=== PATIENT | male | born 1975 | race Caucasian/White ===

== ENCOUNTER → 2016-05-11 | Outpatient (CLI) | payer BC ==
[~2016-05-11] MED LIST: REGADENOSON 0.4 MG/5 ML SYRINGE IV ONE
--- NOTE | 2016-05-11 12:05 | EST ---
DATE OF SERVICE: 05/11/2016 AGE: 40Y SEX: M HT: 68" WT: 237 lbs. Protocol Nasmi: X Other: Stress Cardiolite Stage: 3 Dur. of Exercise: 8:00 *Heart Rate Blood Pressure *Rest: 89 Rest: 152/91 * *Max. Achieved: 152 Maximum BP: 200/92 85% PMHR: 151 100% PMHR: 178 *METS: 9.5 INDICATIONS: Abnormal EKG. MEDICATIONS: Baclofen, metformin, hydrocodone, atorvastatin, omeprazole. Baseline EKG revealed a normal sinus rhythm with borderline voltage criteria for LVH. Patient walked on standard Nasim protocol for 8 minutes, achieved a maximum heart rate of 152 beats per minute, which is 85% of predicted maximal. He developed fatigue and shortness of breath, but did not have any angina or arrhythmia. EKG did not reveal any ST segment changes to indicate ischemia. By EKG criteria, this is a negative stress test with fair exercise capacity. Patient had a slightly hypertensive response to exercise. The nuclear scan results, which are more pertinent, will be reported by the radiologist.
--- NOTE | 2016-05-11 15:49 | NM ---
EXAMINATION TYPE: NM stress cardiolite complete DATE OF EXAM: 05/11/2016 11:11 AM COMPARISON: NONE HISTORY: 40 year-old male abnormal EKG TECHNIQUE: After the intravenous administration of 9.9 mCi Tc 99m Sestamibi - Rest images obtained 4 5 minutes post injection. The patient exercised using a PALMA protocol and 1 minute prior to peak e xercise was injected with 26.4 mCi Tc 99m Sestamibi - Stress images obtained 10 minutes post injectio n. FINDINGS: Targeted heart rate was achieved during performance of the study. Review of stress and rest SPECT pamela ges demonstrates no distinct perfusion abnormality. Gated analysis shows normal wall motion with an estimated left ventricular ejection fraction of 63 %. TID is calculated at 0.77, within normal limit s. Polar maps are normal. IMPRESSION: No scintigraphic evidence for reversible ischemia
== END | disposition home or self-care (01) ==
LOC: RADNMMAIN 08:19
PROVIDERS: ATTEND Family Medicine
DX: R94.31 Abnormal electrocardiogram [ECG] [EKG] (principal)
CPT/HCPCS: 93017; 78452; A9500; J2785

== ENCOUNTER → 2018-07-06 | Outpatient (CLI) | payer BC ==
--- NOTE | 2018-07-06 12:07 | XR ---
EXAMINATION TYPE: XR cervical spine comp DATE OF EXAM: 07/06/2018 TECHNIQUE: Frontal, lateral, oblique, swimmers, and open mouth view of the cervical spine are obtaine d. HISTORY: M54.2 Cervical Pain COMPARISON: None FINDINGS: The cervical spine is visualized in its entirety from C1 thru the top of T1 level, it is s atisfactory in alignment without evidence of acute fracture or dislocation. The pre-vertebral soft t issue appears within normal limits. The C1-C2 articulation is within normal limits on the open mouth view. Mild uncovertebral hypertrophy and facet arthropathy are seen within the lower cervical spine . The oblique images demonstrate mild neural foraminal narrowing at C5-C6 on the right. IMPRESSION: No acute fracture or malalignment is seen in the cervical spine. Mild neural foraminal n arrowing at C5-C6 on the right secondary to mild degenerative disc disease of the cervical spine.
== END | disposition home or self-care (01) ==
LOC: RADXRMAIN 10:21
PROVIDERS: ATTEND Family Medicine
DX: M48.02 Spinal stenosis, cervical region (principal); M50.322 Other cervical disc degeneration at C5-C6 level
CPT/HCPCS: 72050

== ENCOUNTER → 2019-12-03 | Day surgery (SDC) | payer BC ==
[2019-11-28 15:02] VITALS: BMI 33.4
[~2019-12-03] MED LIST changes: +LACTATED RINGERS 1,000 ML IV SCH; +LIDOCAINE 1% (10MG/ML) FOR IV START INTRADERMA PRN; +PROPOFOL 10 MG/ML 20 ML VIAL IV ONE; -REGADENOSON 0.4 MG/5 ML SYRINGE IV ONE
[2019-12-03 08:02] VITALS: TEMP 98.3
[2019-12-03 08:17] LABS: Glucose,Whole Blood 124 mg/dL (75-99)
--- NOTE | 2019-12-03 08:29 | P.GSHP ---
History of Present Illness H&P Date: 12/03/19 Chief Complaint: GERD Patient here today for upper endoscopy. Describes chronic reflux. Symptoms improved with omeprazole. Also complains of a bad discomfort in the back of his throat after smoking marijuana each evening. No dysphasia. No rectal bleeding or melena. Past Medical History Past Medical History: Diabetes Mellitus, GERD/Reflux, Hyperlipidemia, Hypertension Additional Past Medical History / Comment(s): ruptured disc back History of Any Multi-Drug Resistant Organisms: None Reported Additional Past Surgical History / Comment(s): carpal tunnel bijan Additional Past Anesthesia/Blood Transfusion Reaction / Comment(s): has never had anesthesia Smoking Status: Current every day smoker Medications and Allergies Home Medications Medication Instructions Recorded Confirmed Type Atorvastatin [Lipitor] 10 mg PO HS 11/28/19 12/03/19 History HYDROcodone/APAP 10-325MG [[place] 1 tab PO TID 11/28/19 12/03/19 History 10-325] Ibuprofen 200 mg PO Q8H PRN 11/28/19 12/03/19 History Omeprazole [PriLOSEC] 20 mg PO DAILY 11/28/19 12/03/19 History lisinopriL 20 mg PO DAILY 11/28/19 12/03/19 History metFORMIN HCL [Glucophage] 1,000 mg PO BID 11/28/19 12/03/19 History Allergies Allergy/AdvReac Type Severity Reaction Status Date / Time No Known Allergies Allergy Unverified 12/03/19 08:05 Surgical - Exam Vital Signs Temp Pulse Resp BP Pulse Ox 98.3 F 78 18 138/95 96 12/03/19 08:00 12/03/19 08:00 12/03/19 08:00 12/03/19 08:00 12/03/19 08:00 Physical exam: General: Well-developed, well-nourished HEENT: Normocephalic, sclerae nonicteric Abdomen: Nontender, nondistended Extremities: No edema Neuro: Alert and oriented Results - Labs Abnormal Lab Results - Last 24 Hours (Table) 12/03/19 Range/Units 08:11 POC Glucose (mg/dL) 124 H (75-99) mg/dL Assessment and Plan (1) GERD (gastroesophageal reflux disease) Narrative/Plan: Will proceed with upper and lower endoscopy Current Visit: Yes Status: Acute Code(s): K21.9 - GASTRO-ESOPHAGEAL REFLUX DISEASE WITHOUT ESOPHAGITIS SNOMED Code(s): 434934880
--- NOTE | 2019-12-03 08:39 | P.PCN ---
Date of Procedure: 12/03/19 Procedure(s) Performed: Preoperative Dx: GERD Postoperative Dx: Mild gastritis Procedure: EGD with Bx Anesthesia: Sedation Endoscopist: Dr. Spence Specimens: Antrum Endoscopic Procedure: The patient was on the endoscopy table in the left decubitus position. The Olympus gastroscope was inserted into the oropharynx and passed under direct visualization to the region of the third portion of the duodenum. From that point the scope was slowly withdrawn inspecting all surfaces carefully. There were no neoplastic inflammatory or polypoid lesions throughout the duodenum. The pylorus was widely patent. The stomach was carefully inspected. There was evidence of mild inflammatory changes consistent with mild gastritis. A biopsy of the antrum took place to rule out H. pylori. Retroflexion revealed a normal hiatus. The esophagus was then carefully examined. There were no neoplastic inflammatory or polypoid lesions throughout the visualized esophagus. The patient was then taken to the recovery room in stable condition per anesthesia guidelines. Recommendations: Await biopsy results. Continue antiacid therapy
[2019-12-03 08:55] VITALS: BP 133/92; PULSE 78; RESP 17
== END ==
LOC: ORWHC2ENDO 07:39
PROVIDERS: ATTEND Surgery
DX: K29.50 Unspecified chronic gastritis without bleeding (principal); K21.9 Gastro-esophageal reflux disease without esophagitis; E11.9 Type 2 diabetes mellitus without complications; E78.5 Hyperlipidemia, unspecified; I10 Essential (primary) hypertension; Z98.890 Other specified postprocedural states; F17.210 Nicotine dependence, cigarettes, uncomplicated; J44.9 Chronic obstructive pulmonary disease, unspecified; M50.20 Other cervical disc displacement, unspecified cervical region; M51.26 Other intervertebral disc displacement, lumbar region; E66.9 Obesity, unspecified; Z68.33 Body mass index [BMI] 33.0-33.9, adult; M19.90 Unspecified osteoarthritis, unspecified site; M72.2 Plantar fascial fibromatosis; E78.00 Pure hypercholesterolemia, unspecified; Z79.84 Long term (current) use of oral hypoglycemic drugs; Z79.891 Long term (current) use of opiate analgesic; Z79.899 Other long term (current) drug therapy
CPT/HCPCS: 88305; 43239; J2704

== ENCOUNTER → 2021-10-26 | Outpatient (CLI) | payer BC ==
--- NOTE | 2021-10-26 08:56 | CT ---
EXAMINATION TYPE: CT soft tissue neck wo con DATE OF EXAM: 10/26/2021 COMPARISON: none HISTORY: Sore throat CT DLP: 611.[address] of the neck was performed from the skull base through the lung apices. Lack of contrast limits evaluation. AIRWAY: The supraglottic, glottic, and subglottic portions of the airway appear patent and free of mass. SALIVARY GLANDS: The submandibular and parotid glands are free of mass or inflammatory process. THYROID GLAND: 1 cm right thyroid nodule with mural calcification. Consider ultrasound correlation. LYMPH NODES: No adenopathy seen greater than 1cm. LUNG APICES: No nodule or mass is seen. Incidental azygos lobe and fissure right upper lobe. OTHER: Vascular structures are patent. No significant degenerative change of the cervical spine. N o abscess seen. Mild mucosal thickening maxillary sinuses. IMPRESSION: 1. Right thyroid nodule as discussed. Consider ultrasound correlation. 2. Chronic sinusitis.
== END | disposition home or self-care (01) ==
LOC: RADCTMAIN 07:38
PROVIDERS: ATTEND Family Medicine
DX: R07.0 Pain in throat (principal)
CPT/HCPCS: 70490

== ENCOUNTER → 2021-11-25 | Outpatient (CLI) | payer BC ==
--- NOTE | 2021-11-25 16:08 | US ---
EXAMINATION TYPE: US thyroid st tissue head/neck DATE OF EXAM: 11/25/2021 COMPARISON: Correlation CT 10/26/2021 CLINICAL HISTORY: 46-year-old male E04.1 thyroid nodule. GLAND SIZE: Right Lobe: 4.6 x 2.3 x 2.2 cm. Overall Parenchyma: Homogeneous Left Lobe: 4.6 x 1.7 x 2.2 cm Overall Parenchyma: homogeneous Isthmus Thickness: 3.4 mm NODULES RIGHT: # of nodules measured on right: 3 1. 1.0 X 0.7 x 1.0 cm, upper lateral, solid or almost completely solid, hypoechoic TR 4 nodule, whi ch is wider than tall, with smooth margins, without echogenic foci. No prior 2. 1.2 X 1.0 x 1.1 cm, mid, solid or almost completely solid, isoechoic TR 3 nodule, which is wider than tall, with smooth margins, without echogenic foci. No prior 3. 0.5 X 0.5 x 0.6 cm, mid upper, solid or almost completely solid, isoechoic TR 3 nodule, which is wider than tall, with ill-defined margins, without echogenic foci. No prior LEFT: # of nodules measured on left: 0 ISTHMUS: # of nodules measured in the isthmus: 0 Bilateral neck scanned, no evidence of lymphadenopathy. IMPRESSION: Three nodules in the right lobe. The 1.0 cm TR 4 nodule at the upper pole can be followed. FNA if it reaches 1.5 cm. The other 2 nodules (TR 3) can also be followed with FNA if they reach 2.5 cm.
== END | disposition home or self-care (01) ==
LOC: RADUSWWP 12:49
PROVIDERS: ATTEND Family Medicine
DX: E04.1 Nontoxic single thyroid nodule (principal)
CPT/HCPCS: 76536